=== PATIENT | male | born 1945 | race Caucasian/White ===

== ENCOUNTER → 2018-01-06 | Outpatient (CLI) | payer OTHER | END | disposition home or self-care (01) | LOC: SHCH 10:38 | PROVIDERS: ATTEND Internal Medicine Cardiovascular Disease | DX: I65.23 Occlusion and stenosis of bilateral carotid arteries (principal) | CPT/HCPCS: 93880 ==

== ENCOUNTER → 2019-03-20 | Outpatient (CLI) | payer OTHER | END | disposition home or self-care (01) | LOC: SHCH 08:21 | PROVIDERS: ATTEND Internal Medicine Cardiovascular Disease | DX: I08.0 Rheumatic disorders of both mitral and aortic valves (principal); I11.9 Hypertensive heart disease without heart failure | CPT/HCPCS: 93306 ==

== ENCOUNTER → 2019-06-19 | Outpatient (CLI) | payer OTHER ==
[~2019-06-19] MED LIST: AEC81 PO; AMIT100T2 PO; AMLO5TAB5 PO; APIX5TAB PO; ATOR40TA69 PO; FENO54TA6 PO; INSU100I35 SQ; METF-444 PO; METO50TA18 PO; OMEGA KRILL OIL PO; PREG150C46 PO; [UNRECOGNIZED DRUG - OTHER] PO
== END | disposition home or self-care (01) ==
LOC: RAH 13:16
PROVIDERS: ATTEND Internal Medicine Nephrology
DX: I82.492 Acute embolism and thrombosis of other specified deep vein of left lower extremity (principal)
CPT/HCPCS: 93971

== ENCOUNTER 2022-04-17 01:44 | Emergency (ER) | payer OTHER ==
[~2022-04-17] VITALS: Ht 177.8 cm; Wt 115.7 kg
[2022-04-17 02:21] LABS: BASOPHILS % (AUTO) 0.4 % (0.0-5.0); EOSINOPHILS % (AUTO) 4.9 % (0.0-8.0); HEMATOCRIT 43.7 % (42-54); LYMPHOCYTES % (AUTO) 49.3 % (21.0-51.0); MEAN CORPUSCULAR HEMOGLOBIN 28.2 pg (27.0-33.0); MEAN CORPUSCULAR HGB CONC 34.1 g/dL (32.0-36.0); MEAN CORPUSCULAR VOLUME 82.6 fL (79-99); MONOCYTES % (AUTO) 5.8 % (3.0-13.0); NEUTROPHILS % (AUTO) 39.3 % (40.0-77.0); PLATELET COUNT (AUTO) 76 K/uL (130-400); RED BLOOD CELL COUNT(AUTO) 5.29 MIL/uL (4.50-6.20); RED CELL DISTRIBUTION WIDTH 13.3 % (11.0-15.5); WHITE BLOOD COUNT (AUTO) 11.2 K/uL (4.8-10.8)
[2022-04-17] MEDS ORDERED: FUROSEMIDE 40MG VIAL IV ONE (02:30)
[2022-04-17 02:31] LABS: CREATININE 2.2 mg/dL (0.5-1.5); POTASSIUM 4.5 mmol/L (3.5-5.1)
[2022-04-17 02:31] LABS: APPEARANCE,URINE CLEAR (CLEAR); BILIRUBIN,URINE NEGATIVE (NEGATIVE); COLOR,URINE YELLOW (YELLOW); GLUCOSE, URINE (UA) >=1000 mg/dL (NEGATIVE); KETONES,URINE NEGATIVE (NEGATIVE); LEUKOCYTE ESTERASE ,URINE NEGATIVE (NEGATIVE); NITRATE,URINE NEGATIVE (NEGATIVE); OCCULT BLOOD,URINE TRACE-INTACT (NEGATIVE); PROTEIN,URINE NEGATIVE (NEGATIVE); UROBILINOGEN,URINE 0.2 mg/dL (0.2-1.0)
[2022-04-17 02:32] LABS: PROTHROMBIN TIME 10.9 SEC (9.6-11.6)
[2022-04-17 02:33] LABS: PARTIAL THROMBOPLASTIN TIME 22.5 SEC (26.3-35.5)
[2022-04-17 02:36] LABS: BACTERIA,URINE None Seen /HPF (None Seen); RBC,URINE 0-1 /HPF (0-1); SQUAMOUS EPITHELIAL CELL,UR Rare /HPF (0-2); WBC,URINE 0-1 /HPF (0-1)
[2022-04-17 02:38] LABS: ALBUMIN 3.8 g/dL (3.5-5.0); TOTAL PROTEIN, SERUM 7.1 g/dL (6.0-8.3)
[2022-04-17 04:46] VITALS: BP 143/53
== END 2022-04-17 04:53 | disposition home or self-care (01) ==
LOC: EDH 01:44
DX: I10 Essential (primary) hypertension (principal); E78.00 Pure hypercholesterolemia, unspecified; Z79.899 Other long term (current) drug therapy; Z79.82 Long term (current) use of aspirin
CPT/HCPCS: 99283; 96374; 84484; 80053; 85025; 85610; 85730; 81001; 36415; 93005; J1940

== ENCOUNTER 2022-04-27 22:12 | Inpatient (IN) | payer OTHER ==
[~2022-04-27] VITALS: Ht 177.8 cm; Wt 107.9 kg
[~2022-04-27 22:12] MED LIST changes: +ALTEPLASE 100 MG VIAL IVP ONE
[2022-04-27 22:42] LABS: BASOPHILS % (AUTO) 0.3 % (0.0-5.0); EOSINOPHILS % (AUTO) 2.2 % (0.0-8.0); HEMATOCRIT 43.8 % (42-54); MEAN CORPUSCULAR HEMOGLOBIN 28.3 pg (27.0-33.0); MEAN CORPUSCULAR HGB CONC 34.5 g/dL (32.0-36.0); MONOCYTES % (AUTO) 12.1 % (3.0-13.0); NEUTROPHILS % (AUTO) 41.2 % (40.0-77.0); PLATELET COUNT (AUTO) 104 K/uL (130-400); RED BLOOD CELL COUNT(AUTO) 5.34 MIL/uL (4.50-6.20); RED CELL DISTRIBUTION WIDTH 13.2 % (11.0-15.5); WHITE BLOOD COUNT (AUTO) 14.1 K/uL (4.8-10.8)
[2022-04-27 22:56] LABS: CREATININE 3.6 mg/dL (0.5-1.5); POTASSIUM 4.4 mmol/L (3.5-5.1)
[2022-04-27] MEDS ORDERED: FUROSEMIDE 40MG VIAL IV ONE (23:00)
[2022-04-27 23:02] LABS: CRP QUANTITATIVE 22.4 mg/L (0.00-9.0); MAGNESIUM 2.6 mg/dL (1.80-2.40); TOTAL PROTEIN, SERUM 7.6 g/dL (6.0-8.3)
[2022-04-27] MEDS ORDERED: ASPIRIN 325MG TAB ONE (23:07)
[2022-04-27] MEDS ORDERED: NITROGLYCERIN 1GM OINT 1 INCH/1GM TD ONE ×2 (23:07→23:30)
[2022-04-27 23:08] LABS: B-TYPE NATRIURETIC PEPTIDE 240 pg/mL (0-100)
[2022-04-27 23:21] LABS: APPEARANCE,URINE CLEAR (CLEAR); BILIRUBIN,URINE NEGATIVE (NEGATIVE); COLOR,URINE YELLOW (YELLOW); GLUCOSE, URINE (UA) >=1000 mg/dL (NEGATIVE); KETONES,URINE NEGATIVE (NEGATIVE); LEUKOCYTE ESTERASE ,URINE NEGATIVE (NEGATIVE); NITRATE,URINE NEGATIVE (NEGATIVE); OCCULT BLOOD,URINE NEGATIVE (NEGATIVE); PROTEIN,URINE NEGATIVE (NEGATIVE); UROBILINOGEN,URINE 0.2 mg/dL (0.2-1.0)
[2022-04-27 23:27] LABS: BACTERIA,URINE Rare /HPF (None Seen); RBC,URINE 0-1 /HPF (0-1); SQUAMOUS EPITHELIAL CELL,UR 0-2 /HPF (0-2); WBC,URINE 0-1 /HPF (0-1)
[2022-04-27] MEDS ORDERED: ASPIRIN 325MG TAB PO ONE (23:30)
[2022-04-27] MEDS ORDERED: TRAMADOL HCL 50 MG TABLET PO ONE (23:30)
[2022-04-27] MEDS ORDERED: HEPARIN 5,000 UNIT VIAL ONE (23:38)
[2022-04-27] MEDS ORDERED: HEPARIN 25,000 UNITS/250ML D5W 250 ML IV ONE (23:39)
[2022-04-28] VITALS (28 sets, daily range): BP systolic 93–156; BP diastolic 49–77
[2022-04-28] MEDS ORDERED: ACETAMINOPHEN 325 MG TAB PO PRN
[2022-04-28] MEDS ORDERED: CLOPIDOGREL 300MG TAB PO ONE
[2022-04-28] MEDS ORDERED: HEPARIN 1,000 UNIT VIAL IVP SCH
[2022-04-28] MEDS ORDERED: NITROGLYCERIN 1GM OINT 1 INCH/1GM TD ONE
[2022-04-28] MEDS ORDERED: ONDANSETRON 4MG INJ IV PRN
[2022-04-28] MEDS ORDERED: HEPARIN 25,000 UNITS/250ML D5W 250 ML IV SCH
[2022-04-28] MEDS: ALTEPLASE 100MG 1 VIAL IV PRN ×3 (00:17→01:15)
[2022-04-28 02:48] LABS: BASOPHILS % (AUTO) 0.3 % (0.0-5.0); EOSINOPHILS % (AUTO) 3.1 % (0.0-8.0); HEMATOCRIT 39.6 % (42-54); LYMPHOCYTES % (AUTO) 45.2 % (21.0-51.0); MEAN CORPUSCULAR HEMOGLOBIN 28.4 pg (27.0-33.0); MEAN CORPUSCULAR HGB CONC 34.6 g/dL (32.0-36.0); MONOCYTES % (AUTO) 13.5 % (3.0-13.0); NEUTROPHILS % (AUTO) 37.6 % (40.0-77.0); PLATELET COUNT (AUTO) 106 K/uL (130-400); RED BLOOD CELL COUNT(AUTO) 4.83 MIL/uL (4.50-6.20); RED CELL DISTRIBUTION WIDTH 13.2 % (11.0-15.5); WHITE BLOOD COUNT (AUTO) 16.6 K/uL (4.8-10.8)
[2022-04-28 02:55] LABS: INR 1.05 (0.85-1.15); PROTHROMBIN TIME 11.4 SEC (9.6-11.6)
[2022-04-28 02:56] LABS: PARTIAL THROMBOPLASTIN TIME 25.7 SEC (26.3-35.5)
[2022-04-28 02:57] LABS: CREATININE 3.4 mg/dL (0.5-1.5); POTASSIUM 3.6 mmol/L (3.5-5.1)
[2022-04-28 03:04] LABS: MAGNESIUM 2.5 mg/dL (1.80-2.40); PHOSPHORUS 5.8 mg/dL (2.5-4.9)
[2022-04-28 03:28] LABS: HEMOGLOBIN A1C 7.8 % (4.0-6.0)
[2022-04-28 05:23] LABS: HEMATOCRIT 38.9 % (42-54)
[2022-04-28 05:40] LABS: INR 1.09 (0.85-1.15); PROTHROMBIN TIME 11.8 SEC (9.6-11.6)
[2022-04-28 05:41] LABS: PARTIAL THROMBOPLASTIN TIME 39.3 SEC (26.3-35.5)
[2022-04-28 08:14] LABS: APPEARANCE,URINE TURBID (CLEAR); BILIRUBIN,URINE NEGATIVE (NEGATIVE); COLOR,URINE RED (YELLOW); GLUCOSE, URINE (UA) >=1000 mg/dL (NEGATIVE); KETONES,URINE 40 mg/dL (NEGATIVE); LEUKOCYTE ESTERASE ,URINE LARGE (NEGATIVE); NITRATE,URINE POSITIVE (NEGATIVE); OCCULT BLOOD,URINE LARGE (NEGATIVE); PH,URINE 6.5 (5.0-8.0); PROTEIN,URINE >=300 mg/dL (NEGATIVE); UROBILINOGEN,URINE >=8.0 mg/dL (0.2-1.0)
[2022-04-28 08:22] LABS: RBC,URINE Full Field /HPF (0-1)
[2022-04-28 08:25] LABS: BACTERIA,URINE Few /HPF (None Seen); SQUAMOUS EPITHELIAL CELL,UR 0-2 /HPF (0-2)
[2022-04-28] MEDS: ASPIRIN 81MG CHEW TAB PO SCH (08:35)
[2022-04-28] MEDS: FAMOTIDINE 20MG VIAL IV SCH (08:35)
[2022-04-28] MEDS: INSULIN HUMULIN R 100 UNIT/ML 3ML SQ SCH ×5 (08:37→21:16)
[2022-04-28] MEDS ORDERED: NIFEDIPINE ER 30 MG TAB PO SCH (09:00)
[2022-04-28] MEDS ORDERED: CLOPIDOGREL 75MG TAB PO SCH (09:00)
[2022-04-28] MEDS ORDERED: ASPIRIN 81MG CHEW TAB PO SCH (09:00)
[2022-04-28] MEDS: MORPHINE 2 MG SYG IV PRN ×2 (11:22→21:05)
[2022-04-28] MEDS: HYDROMORPHONE 1 MG INJ IV PRN ×2 (13:03→18:49)
[2022-04-28] MEDS ORDERED: METOPROLOL TARTRATE 25 MG TAB PO SCH (21:00)
[2022-04-28] MEDS: ATORVASTATIN 40 MG TABLET PO SCH (21:00)
[2022-04-29] VITALS (24 sets, daily range): BP systolic 116–170; BP diastolic 55–110
[2022-04-29 04:32] LABS: HEMATOCRIT 40.7 % (42-54); MEAN CORPUSCULAR HEMOGLOBIN 28.2 pg (27.0-33.0); MEAN CORPUSCULAR HGB CONC 33.9 g/dL (32.0-36.0); MEAN CORPUSCULAR VOLUME 83.2 fL (79-99); RED BLOOD CELL COUNT(AUTO) 4.89 MIL/uL (4.50-6.20); WHITE BLOOD COUNT (AUTO) 10.6 K/uL (4.8-10.8)
[2022-04-29 04:42] LABS: INR 1.05 (0.85-1.15); PROTHROMBIN TIME 11.4 SEC (9.6-11.6)
[2022-04-29 04:44] LABS: PARTIAL THROMBOPLASTIN TIME 24.9 SEC (26.3-35.5)
[2022-04-29 05:00] LABS: ALBUMIN 3.5 g/dL (3.5-5.0); CREATININE 2.6 mg/dL (0.5-1.5); MAGNESIUM 2.5 mg/dL (1.80-2.40); PHOSPHORUS 4.3 mg/dL (2.5-4.9); POTASSIUM 4.2 mmol/L (3.5-5.1); TOTAL PROTEIN, SERUM 6.3 g/dL (6.0-8.3); URIC ACID 9.8 mg/dL (2.6-7.2)
[2022-04-29] MEDS: INSULIN HUMULIN R 100 UNIT/ML 3ML SQ SCH ×4 (05:28→21:22)
[2022-04-29] MEDS: FAMOTIDINE 20MG VIAL IV SCH (08:23)
[2022-04-29] MEDS: ASPIRIN 81MG CHEW TAB PO SCH (08:24)
[2022-04-29] MEDS: ISOSORBIDE DINITRATE 10MG TAB PO SCH ×2 (08:24→21:13)
[2022-04-29] MEDS: METOPROLOL TARTRATE 25 MG TAB PO SCH ×2 (08:24→21:12)
[2022-04-29] MEDS: MORPHINE 2 MG SYG IV PRN ×2 (08:25→19:21)
[2022-04-29] MEDS ORDERED: PHARMACY COMMUNICATION MISC SCH (08:30)
[2022-04-29] MEDS: CLOPIDOGREL 75MG TAB PO SCH (09:37)
[2022-04-29] MEDS: HYDROMORPHONE 1 MG INJ IV PRN ×2 (14:07→21:20)
[2022-04-29] MEDS: HEPARIN 25,000 UNITS/250ML D5W 250 ML IV PRN (14:12)
[2022-04-29] MEDS ORDERED: ISOSORBIDE DINITRATE 10MG TAB PO SCH (16:30)
[2022-04-29] MEDS ORDERED: HEPARIN 5,000 UNIT VIAL ONE (19:47)
[2022-04-29] MEDS ORDERED: ISOSORBIDE DINITRATE 20MG TAB ONE (21:03)
[2022-04-29] MEDS: ATORVASTATIN 40 MG TABLET PO SCH (21:12)
[2022-04-30] VITALS (63 sets, daily range): BP systolic 98–162; BP diastolic 40–112
[2022-04-30] MEDS: HEPARIN 25,000 UNITS/250ML D5W 250 ML IV PRN (01:09)
[2022-04-30] MEDS ORDERED: NITROGLYCERIN 50MG/D5W 250ML 1 BOT ONE (01:25)
[2022-04-30] MEDS ORDERED: NITROGLYCERIN 50MG/D5W 250ML 250 BOT IV SCH (02:00)
[2022-04-30 04:31] LABS: HEMATOCRIT 41.2 % (42-54); MEAN CORPUSCULAR HEMOGLOBIN 27.6 pg (27.0-33.0); MEAN CORPUSCULAR HGB CONC 33.7 g/dL (32.0-36.0); MEAN CORPUSCULAR VOLUME 81.9 fL (79-99); RED BLOOD CELL COUNT(AUTO) 5.03 MIL/uL (4.50-6.20); RED CELL DISTRIBUTION WIDTH 13.1 % (11.0-15.5)
[2022-04-30 04:58] LABS: ALBUMIN 3.4 g/dL (3.5-5.0); CREATININE 2.2 mg/dL (0.5-1.5); MAGNESIUM 2.5 mg/dL (1.80-2.40); PHOSPHORUS 3.1 mg/dL (2.5-4.9); POTASSIUM 4.1 mmol/L (3.5-5.1); TOTAL PROTEIN, SERUM 6.8 g/dL (6.0-8.3)
[2022-04-30] MEDS: INSULIN HUMULIN R 100 UNIT/ML 3ML SQ SCH (06:25)
[2022-04-30] MEDS: FAMOTIDINE 20MG VIAL IV SCH (07:56)
[2022-04-30] MEDS: METOPROLOL TARTRATE 25 MG TAB PO SCH (07:56)
[2022-04-30] MEDS: ASPIRIN 81MG CHEW TAB PO SCH (07:57)
[2022-04-30] MEDS: CLOPIDOGREL 75MG TAB PO SCH (07:57)
[2022-04-30] MEDS: ISOSORBIDE DINITRATE 10MG TAB PO SCH (08:48)
[2022-04-30] MEDS ORDERED: AMLODIPINE 5 MG TAB PO ONE (10:00)
[2022-04-30] MEDS: AMLODIPINE 5 MG TAB PO SCH (10:27)
[2022-04-30] MEDS: INSULIN LISPRO 100 UNIT/ML 3ML SQ SCH ×5 (11:38→21:00)
[2022-04-30] MEDS ORDERED: ISOS60TA77 PO (11:55)
[2022-04-30] MEDS ORDERED: INSU100V37 SQ (11:55)
[2022-04-30] MEDS ORDERED: FOLI0.8T22 PO (11:55)
[2022-04-30] MEDS ORDERED: DOXA8TAB81 PO (11:55)
[2022-04-30] MEDS ORDERED: TORS20TA4 PO (11:55)
[2022-04-30] MEDS ORDERED: LOSA50TA64 PO (11:55)
[2022-04-30] MEDS ORDERED: ROSU10TA28 PO (11:55)
[2022-04-30] MEDS ORDERED: ICOS1CAP PO (11:55)
[2022-04-30] MEDS ORDERED: INSU100V35 SQ (11:55)
[2022-04-30] MEDS ORDERED: GABA-529 PO (11:55)
[2022-04-30] MEDS ORDERED: CARV25TA77 PO (11:55)
[2022-04-30] MEDS ORDERED: DAPA10TA PO (11:55)
[2022-04-30] MEDS ORDERED: ISOSORBIDE DINITRATE 10MG TAB PO SCH (21:00)
[2022-04-30] MEDS ORDERED: CARVEDILOL 6.25 MG TABLET PO SCH (21:00)
[2022-04-30] MEDS: ATORVASTATIN 40 MG TABLET PO SCH (21:15)
[2022-04-30] MEDS: AMITRIPTYLINE 25 MG TABLET PO SCH (21:16)
[2022-04-30] MEDS: INSULIN GLARGINE 100 UNITS/ML 10 ML VIAL SQ SCH (21:18)
[2022-04-30] MEDS ORDERED: LEVOFLOXACIN 250 MG/D5W 50ML 50 ML IVPB SCH (23:30)
[2022-05-01] VITALS (30 sets, daily range): BP systolic 97–176; BP diastolic 42–114
[2022-05-01 03:53] LABS: HEMATOCRIT 37.9 % (42-54); MEAN CORPUSCULAR HEMOGLOBIN 28.3 pg (27.0-33.0); MEAN CORPUSCULAR HGB CONC 34.3 g/dL (32.0-36.0); MEAN CORPUSCULAR VOLUME 82.4 fL (79-99); RED BLOOD CELL COUNT(AUTO) 4.6 MIL/uL (4.50-6.20); RED CELL DISTRIBUTION WIDTH 13.2 % (11.0-15.5); WHITE BLOOD COUNT (AUTO) 10.8 K/uL (4.8-10.8)
[2022-05-01 04:06] LABS: CREATININE 2.1 mg/dL (0.5-1.5); MAGNESIUM 2.3 mg/dL (1.80-2.40)
[2022-05-01] MEDS: INSULIN LISPRO 100 UNIT/ML 3ML SQ SCH ×7 (07:30→20:28)
[2022-05-01] MEDS: CLOPIDOGREL 75MG TAB PO SCH (08:53)
[2022-05-01] MEDS: CARVEDILOL 25 MG TABLET PO SCH ×2 (08:54→20:27)
[2022-05-01] MEDS: FAMOTIDINE 20MG VIAL IV SCH (08:54)
[2022-05-01] MEDS: GABAPENTIN 100 MG CAPSULE PO SCH (08:55)
[2022-05-01] MEDS: AMLODIPINE 5 MG TAB PO SCH (08:56)
[2022-05-01] MEDS: ASPIRIN 81MG CHEW TAB PO SCH (08:56)
[2022-05-01] MEDS ORDERED: ISOSORBIDE MONO 30MG SR TAB PO SCH (09:00)
[2022-05-01] MEDS: HYDROMORPHONE 1 MG INJ IV PRN (09:38)
[2022-05-01] MEDS: ATORVASTATIN 40 MG TABLET PO SCH (20:26)
[2022-05-01] MEDS: AMITRIPTYLINE 25 MG TABLET PO SCH (20:26)
[2022-05-01] MEDS: INSULIN GLARGINE 100 UNITS/ML 10 ML VIAL SQ SCH (20:29)
[2022-05-02] VITALS (7 sets, daily range): BP systolic 128–150; BP diastolic 60–94
[2022-05-02 04:28] LABS: HEMATOCRIT 39.9 % (42-54); MEAN CORPUSCULAR HEMOGLOBIN 28.2 pg (27.0-33.0); MEAN CORPUSCULAR HGB CONC 34.3 g/dL (32.0-36.0); MEAN CORPUSCULAR VOLUME 82.1 fL (79-99); RED BLOOD CELL COUNT(AUTO) 4.86 MIL/uL (4.50-6.20); RED CELL DISTRIBUTION WIDTH 13.2 % (11.0-15.5); WHITE BLOOD COUNT (AUTO) 10.4 K/uL (4.8-10.8)
[2022-05-02 04:35] LABS: CREATININE 2.1 mg/dL (0.5-1.5); INR 1.01 (0.85-1.15); POTASSIUM 4.1 mmol/L (3.5-5.1)
[2022-05-02 04:36] LABS: PARTIAL THROMBOPLASTIN TIME 24.5 SEC (26.3-35.5)
[2022-05-02] MEDS: INSULIN LISPRO 100 UNIT/ML 3ML SQ SCH ×7 (07:30→21:25)
[2022-05-02] MEDS: FAMOTIDINE 20MG VIAL IV SCH (08:53)
[2022-05-02] MEDS: ASPIRIN 81MG CHEW TAB PO SCH (08:53)
[2022-05-02] MEDS: CLOPIDOGREL 75MG TAB PO SCH (08:54)
[2022-05-02] MEDS: ISOSORBIDE MONO 30MG SR TAB PO SCH ×2 (08:54→21:09)
[2022-05-02] MEDS: GABAPENTIN 100 MG CAPSULE PO SCH (08:54)
[2022-05-02] MEDS: FISH OIL 1000 MG/CAP PO SCH (08:54)
[2022-05-02] MEDS: AMLODIPINE 5 MG TAB PO SCH ×2 (08:54→21:09)
[2022-05-02] MEDS: CARVEDILOL 25 MG TABLET PO SCH ×2 (08:55→21:09)
[2022-05-02] MEDS: ***HM***(Fenofibrate 54 MG) PO SCH (08:56)
[2022-05-02] MEDS ORDERED: TORSEMIDE 20 MG TAB PO SCH (09:00)
[2022-05-02] MEDS: 0.9%NACL 1000ML 1,000 ML IV SCH (13:10)
[2022-05-02] MEDS: ACETYLCYSTEINE 20% 200MG/ML 4ML VIAL PO SCH ×3 (13:10→21:10)
[2022-05-02] MEDS: ATORVASTATIN 40 MG TABLET PO SCH (21:09)
[2022-05-02] MEDS: ISOSORBIDE MONO 60MG SR TAB PO SCH (21:09)
[2022-05-02] MEDS: DOXAZOSIN MESYLATE 2 MG TABLET PO SCH (21:10)
[2022-05-02] MEDS: AMITRIPTYLINE 25 MG TABLET PO SCH (21:12)
[2022-05-02] MEDS: INSULIN GLARGINE 100 UNITS/ML 10 ML VIAL SQ SCH (21:23)
[2022-05-03] VITALS (13 sets, daily range): BP systolic 98–140; BP diastolic 50–71
[2022-05-03 04:23] LABS: BASOPHILS % (AUTO) 0.3 % (0.0-5.0); EOSINOPHILS % (AUTO) 4.4 % (0.0-8.0); HEMATOCRIT 35.2 % (42-54); LYMPHOCYTES % (AUTO) 44.9 % (21.0-51.0); MEAN CORPUSCULAR HEMOGLOBIN 28.7 pg (27.0-33.0); MEAN CORPUSCULAR HGB CONC 34.4 g/dL (32.0-36.0); MEAN CORPUSCULAR VOLUME 83.4 fL (79-99); MONOCYTES % (AUTO) 8.2 % (3.0-13.0); NEUTROPHILS % (AUTO) 41.9 % (40.0-77.0); PLATELET COUNT (AUTO) 79 K/uL (130-400); RED BLOOD CELL COUNT(AUTO) 4.22 MIL/uL (4.50-6.20); RED CELL DISTRIBUTION WIDTH 13.3 % (11.0-15.5); WHITE BLOOD COUNT (AUTO) 9.7 K/uL (4.8-10.8)
[2022-05-03 04:35] LABS: INR 1.05 (0.85-1.15); PROTHROMBIN TIME 11.4 SEC (9.6-11.6)
[2022-05-03 04:42] LABS: CREATININE 2.2 mg/dL (0.5-1.5); MAGNESIUM 2.3 mg/dL (1.80-2.40); PHOSPHORUS 4.4 mg/dL (2.5-4.9)
[2022-05-03] MEDS: INSULIN LISPRO 100 UNIT/ML 3ML SQ SCH ×7 (06:20→21:49)
[2022-05-03] MEDS: ACETYLCYSTEINE 20% 200MG/ML 4ML VIAL PO SCH ×3 (06:20→21:15)
[2022-05-03] MEDS: 0.9%NACL 1000ML 1,000 ML IV SCH (06:20)
[2022-05-03] MEDS ORDERED: NITROGLYCERIN 50MG VIAL ONE (07:22)
[2022-05-03] MEDS ORDERED: HEPARIN 10,000 UNIT/10ML (1,000 UNIT/ML) VIAL ONE ×2 (07:22→09:14)
[2022-05-03] MEDS ORDERED: LIDOCAINE HCL 400MG/20ML VIAL ONE (07:22)
[2022-05-03] MEDS ORDERED: IOHEXOL 350 MG/ML 100ML INFUS..BTL IV ONE (07:22)
[2022-05-03] MEDS: FAMOTIDINE 20MG VIAL IV SCH (07:40)
[2022-05-03] MEDS: ASPIRIN 81MG CHEW TAB PO SCH (07:40)
[2022-05-03] MEDS: FISH OIL 1000 MG/CAP PO SCH (07:40)
[2022-05-03] MEDS: CARVEDILOL 25 MG TABLET PO SCH ×2 (07:40→21:14)
[2022-05-03] MEDS: CLOPIDOGREL 75MG TAB PO SCH (07:41)
[2022-05-03] MEDS: GABAPENTIN 100 MG CAPSULE PO SCH (07:41)
[2022-05-03] MEDS: ISOSORBIDE MONO 30MG SR TAB PO SCH ×2 (07:41→21:14)
[2022-05-03] MEDS: AMLODIPINE 5 MG TAB PO SCH ×2 (07:41→21:14)
[2022-05-03] MEDS: ***HM***(Fenofibrate 54 MG) PO SCH (07:41)
[2022-05-03] MEDS ORDERED: MIDAZOLAM HCL 1 MG/ML 2ML VIAL ONE ×2 (07:47→09:34)
[2022-05-03] MEDS ORDERED: FENTANYL CITRATE PF 50 MCG/1 ML 2ML VIAL ONE (07:47)
[2022-05-03] MEDS ORDERED: IODIXANOL 320 MG/ML 100 ML VIAL ONE ×2 (08:06→09:31)
[2022-05-03] MEDS ORDERED: CLOPIDOGREL 300MG TAB ONE (08:17)
[2022-05-03] MEDS ORDERED: ATROPINE 1MG SYG IVP ONE (08:23)
[2022-05-03] MEDS ORDERED: DOPAMINE HCL 400 MG/D5%-WATER 0 ML IV ONE (08:25)
[2022-05-03] MEDS ORDERED: GLUCAGON 1MG KIT 1 MG ML IM PRN (10:30)
[2022-05-03] MEDS ORDERED: 0.9%NACL 1000ML 1,000 ML IV SCH (10:30)
[2022-05-03] MEDS ORDERED: DEXTROSE 50%-WATER 50 ML DISP.SYRIN IV PRN (10:30)
[2022-05-03] MEDS: DOXAZOSIN MESYLATE 2 MG TABLET PO SCH (21:14)
[2022-05-03] MEDS: ATORVASTATIN 40 MG TABLET PO SCH (21:14)
[2022-05-03] MEDS: ISOSORBIDE MONO 60MG SR TAB PO SCH (21:15)
[2022-05-03] MEDS: AMITRIPTYLINE 25 MG TABLET PO SCH (21:15)
[2022-05-03] MEDS: INSULIN GLARGINE 100 UNITS/ML 10 ML VIAL SQ SCH (21:48)
[2022-05-04 00:14] VITALS: BP 147/75
[2022-05-04 03:01] VITALS: BP 124/64
[2022-05-04] MEDS: 0.9%NACL 1000ML 1,000 ML IV SCH (04:00)
[2022-05-04 04:11] LABS: HEMATOCRIT 35.4 % (42-54); MEAN CORPUSCULAR HEMOGLOBIN 27.8 pg (27.0-33.0); MEAN CORPUSCULAR HGB CONC 33.6 g/dL (32.0-36.0); MEAN CORPUSCULAR VOLUME 82.7 fL (79-99); RED BLOOD CELL COUNT(AUTO) 4.28 MIL/uL (4.50-6.20); RED CELL DISTRIBUTION WIDTH 13.2 % (11.0-15.5); WHITE BLOOD COUNT (AUTO) 9.1 K/uL (4.8-10.8)
[2022-05-04 04:58] LABS: CREATININE 1.9 mg/dL (0.5-1.5); MAGNESIUM 2.2 mg/dL (1.80-2.40); PHOSPHORUS 4.1 mg/dL (2.5-4.9); POTASSIUM 4.4 mmol/L (3.5-5.1)
[2022-05-04] MEDS: ACETYLCYSTEINE 20% 200MG/ML 4ML VIAL PO SCH ×2 (06:26→13:17)
[2022-05-04] MEDS: INSULIN LISPRO 100 UNIT/ML 3ML SQ SCH ×6 (06:28→16:07)
[2022-05-04 08:10] VITALS: BP 113/55
[2022-05-04] MEDS: ***HM***(Fenofibrate 54 MG) PO SCH (09:00)
[2022-05-04] MEDS: FAMOTIDINE 20MG VIAL IV SCH (10:37)
[2022-05-04] MEDS: ISOSORBIDE MONO 30MG SR TAB PO SCH (10:38)
[2022-05-04] MEDS: AMLODIPINE 5 MG TAB PO SCH (10:38)
[2022-05-04] MEDS: CARVEDILOL 25 MG TABLET PO SCH (10:38)
[2022-05-04] MEDS: CLOPIDOGREL 75MG TAB PO SCH (10:39)
[2022-05-04] MEDS: GABAPENTIN 100 MG CAPSULE PO SCH (10:39)
[2022-05-04] MEDS: ASPIRIN 81MG CHEW TAB PO SCH (10:39)
[2022-05-04] MEDS: FISH OIL 1000 MG/CAP PO SCH (10:39)
[2022-05-04 12:00] VITALS: BP 134/66
[2022-05-04] MEDS ORDERED: CLOP75TA14 PO (14:22)
[2022-05-04] MEDS ORDERED: ISOS60TA77 PO (14:22)
[2022-05-04] MEDS ORDERED: ATOR40TA69 PO (14:22)
[2022-05-04] MEDS ORDERED: AEC81 PO (14:22)
[2022-05-04] MEDS ORDERED: INSU100V35 SQ (14:22)
[2022-05-04] MEDS ORDERED: INSU100V37 SQ (14:22)
[2022-05-04] MEDS ORDERED: TORS20TA4 PO (14:22)
[2022-05-04 16:00] VITALS: BP 117/66
== END 2022-05-04 18:00 | disposition home or self-care (01) | DRG 246 ==
LOC: EDH 22:12 → EDHIP 23:34 → 2BH 04-28 02:25 → 2DH 05-02 03:09
PROVIDERS: ADMIT Internal Medicine; ATTEND Internal Medicine
PROC: 3E03317 Introduction of Other Thrombolytic into Peripheral Vein, Percutaneous Approach (ICD-10-PCS; 2022-04-27)
PROC: 027035Z Dilation of Coronary Artery, One Artery with Two Drug-eluting Intraluminal Devices, Percutaneous Approach (ICD-10-PCS; principal; 2022-05-03)
PROC: 4A023N7 Measurement of Cardiac Sampling and Pressure, Left Heart, Percutaneous Approach (ICD-10-PCS; 2022-05-03)
PROC: B2111ZZ Fluoroscopy of Multiple Coronary Arteries using Low Osmolar Contrast (ICD-10-PCS; 2022-05-03)
DX: I21.09 ST elevation (STEMI) myocardial infarction involving other coronary artery of anterior wall (principal); I25.42 Coronary artery dissection; E87.1 Hypo-osmolality and hyponatremia; N17.9 Acute kidney failure, unspecified; D68.59 Other primary thrombophilia; I50.42 Chronic combined systolic (congestive) and diastolic (congestive) heart failure; N18.4 Chronic kidney disease, stage 4 (severe); I13.0 Hypertensive heart and chronic kidney disease with heart failure and stage 1 through stage 4 chronic kidney disease, or unspecified chronic kidney disease; E11.22 Type 2 diabetes mellitus with diabetic chronic kidney disease; E11.65 Type 2 diabetes mellitus with hyperglycemia; E87.8 Other disorders of electrolyte and fluid balance, not elsewhere classified; J44.9 Chronic obstructive pulmonary disease, unspecified; D72.829 Elevated white blood cell count, unspecified; D69.6 Thrombocytopenia, unspecified; Z79.899 Other long term (current) drug therapy; Z90.79 Acquired absence of other genital organ(s); T45.515A Adverse effect of anticoagulants, initial encounter; E78.00 Pure hypercholesterolemia, unspecified; E66.01 Morbid (severe) obesity due to excess calories; Z20.822 Contact with and (suspected) exposure to COVID-19; E78.5 Hyperlipidemia, unspecified; Z83.3 Family history of diabetes mellitus; Z82.49 Family history of ischemic heart disease and other diseases of the circulatory system; Z86.718 Personal history of other venous thrombosis and embolism; Z86.73 Personal history of transient ischemic attack (TIA), and cerebral infarction without residual deficits; I25.10 Atherosclerotic heart disease of native coronary artery without angina pectoris; R31.0 Gross hematuria; Y92.238 Other place in hospital as the place of occurrence of the external cause; G20 Parkinson's disease; M17.0 Bilateral primary osteoarthritis of knee; N36.8 Other specified disorders of urethra; N40.0 Benign prostatic hyperplasia without lower urinary tract symptoms; Z79.01 Long term (current) use of anticoagulants; G47.33 Obstructive sleep apnea (adult) (pediatric); Z68.34 Body mass index [BMI] 34.0-34.9, adult; E11.21 Type 2 diabetes mellitus with diabetic nephropathy
CPT/HCPCS: 36415; 71045; 76770; 80048; 80053; 80061; 81001; 82948; 83036; 83735; 83880; 84100; 84484; 84550; 85014; 85018; 85025; 85027; 85610; 85730; 86140; 86850; 86900; 86901; 87088; 87635; 93005; 93306; 93356; 93458; 93970; 99156; 99157; C1725; C1894; C9600; C9803; G0378; J0461; J1170; J1265; J1644; J1815; J1940; J2250; J2997; J3010; J3490; J7030; J7608; Q9967

== ENCOUNTER 2023-06-04 13:00 | Observation (INO) | payer OTHER ==
[~2023-06-04] VITALS: Ht 177.8 cm; Wt 98.6 kg
[~2023-06-04 13:00] MED LIST changes: -AEC81 PO; -ALTEPLASE 100 MG VIAL IVP ONE; +AMLO-257 PO; -AMLO5TAB5 PO; -APIX5TAB PO; +ASPI-1005 PO; -ATOR40TA69 PO; +DAPA10TA PO; +DOXA4TAB3 PO; +FENO48TA10 PO; -FENO54TA6 PO; +FOLI0.8T43 PO; +INSU100I24 SQ; -INSU100I35 SQ; -METF-444 PO; -METO50TA18 PO; +NITR0.4T50 SL; +OMEG100033 PO; -OMEGA KRILL OIL PO; +PANT40TA54 PO; -PREG150C46 PO; +TICA90TA PO; -[UNRECOGNIZED DRUG - OTHER] PO
[2023-06-04] MEDS ORDERED: ASPIRIN 81MG CHEW TAB PO ONE (13:30)
[2023-06-04 14:01] LABS: BASOPHILS # (AUTO) 0.04 K/uL (0.00-0.20); BASOPHILS % (AUTO) 0.6 % (0.0-5.0); EOSINOPHILS # (AUTO) 0.37 K/uL (0.00-0.70); EOSINOPHILS % (AUTO) 5.7 % (0.0-8.0); HEMATOCRIT 38.9 % (42-54); IMMATURE GRANULOCYTE ABSOLUTE 0.01 K/uL (0-1); LYMPHOCYTES # (AUTO) 2.5 K/uL (1.0-4.8); LYMPHOCYTES % (AUTO) 38.5 % (21.0-51.0); MEAN CORPUSCULAR HEMOGLOBIN 29.5 pg (27.0-33.0); MEAN CORPUSCULAR HGB CONC 32.6 g/dL (32.0-36.0); MEAN CORPUSCULAR VOLUME 90.5 fL (79-99); MONOCYTES # (AUTO) 0.5 K/uL (0.1-1.0); NEUTROPHILS # (AUTO) 3.1 K/uL (1.8-7.7); PLATELET COUNT (AUTO) 184 K/uL (130-400); RED CELL DISTRIBUTION WIDTH 15.6 % (11.0-15.5); WHITE BLOOD COUNT (AUTO) 6.5 K/uL (4.8-10.8)
[2023-06-04 14:02] LABS: ALBUMIN 3.3 g/dL (3.5-5.0); BILIRUBIN,TOTAL 0.6 mg/dL (0.2-1.0); CREATININE 2.1 mg/dL (0.5-1.5); POTASSIUM 4.8 mmol/L (3.5-5.1)
[2023-06-04] MEDS ORDERED: GUAIFENESIN-DM 200/20 MG 10 ML PO PRN (16:00)
[2023-06-04] MEDS ORDERED: ACETAMINOPHEN 325 MG TAB PO PRN ×2 (16:00)
[2023-06-04] MEDS ORDERED: HYDRALAZINE 20MG/ML VIAL IV PRN (16:00)
[2023-06-04] MEDS ORDERED: CEFTRIAXONE 1G VIAL 2 GM in 0.9%NACL 100ML 100 ML IV SCH (16:00)
[2023-06-04] MEDS ORDERED: LACTULOSE 20 GM/30 ML UDCUP PO PRN (16:00)
[2023-06-04] MEDS ORDERED: ACETAMINOPHEN WITH CODEINE 1 TAB TAB PO PRN ×2 (16:00)
[2023-06-04] MEDS ORDERED: ZOLPIDEM TARTRATE 5 MG TAB PO PRN (16:00)
[2023-06-04] MEDS ORDERED: ONDANSETRON 4MG INJ IV PRN (16:00)
[2023-06-04] MEDS ORDERED: ALBUTEROL 0.083% 2.5 MG/3 ML INH IH PRN (16:00)
[2023-06-04] MEDS ORDERED: DiphenhydrAMINE HCL 50 MG/ML VIAL IV PRN (16:00)
[2023-06-04] MEDS ORDERED: MAG/ALUM/SIMETH 30 ML UDCUP PO PRN (16:00)
[2023-06-04] MEDS ORDERED: NITROGLYCERIN 0.4 MG SL TAB SL PRN (16:00)
[2023-06-04] MEDS ORDERED: CEFTRIAXONE 2GM VIAL IVPB SCH (16:30)
[2023-06-04 20:30] LABS: APPEARANCE,URINE CLEAR (CLEAR); BILIRUBIN,URINE NEGATIVE (NEGATIVE); COLOR,URINE LIGHT-YELLOW (YELLOW); GLUCOSE, URINE (UA) >=1000 mg/dL (NEGATIVE); KETONES,URINE NEGATIVE (NEGATIVE); LEUKOCYTE ESTERASE ,URINE NEGATIVE Leu/uL (NEGATIVE); MUCUS,URINE RARE LPF (None Seen); NITRATE,URINE NEGATIVE (NEGATIVE); OCCULT BLOOD,URINE NEGATIVE (NEGATIVE); PH,URINE 5.5 (5.0-8.0); PROTEIN,URINE NEGATIVE (NEGATIVE); RBC,URINE 0-1 /HPF (0-1); UROBILINOGEN,URINE 0.2 mg/dL (0.2-1.0); WBC,URINE 0-1 /HPF (0-1)
[2023-06-04] MEDS ORDERED: FAMOTIDINE 20MG VIAL IV SCH (21:00)
[2023-06-04] MEDS: FAMOTIDINE 20MG VIAL IV SCH (21:36)
[2023-06-04] MEDS: HEPARIN 5,000 UNIT VIAL SQ SCH (21:37)
[2023-06-04] MEDS: AMITRIPTYLINE 25 MG TABLET PO SCH (21:57)
[2023-06-05 07:03] VITALS: PULSE 84; RESP 18; O2SAT 98
[2023-06-05] MEDS: Dapagliflozin Propanediol (Farxiga) 5 MG PO SCH (09:00)
[2023-06-05] MEDS ORDERED: FISH OIL PO SCH (09:00)
[2023-06-05] MEDS ORDERED: OMEGA PO SCH (09:00)
[2023-06-05] MEDS ORDERED: [UNRECOGNIZED DRUG - OTHER] PO SCH (09:00)
[2023-06-05] MEDS ORDERED: EPA PO SCH (09:00)
[2023-06-05] MEDS ORDERED: FOLIC ACID PO SCH (09:00)
[2023-06-05] MEDS ORDERED: DHA PO SCH (09:00)
[2023-06-05] MEDS ORDERED: VIT BCOMP C PO SCH (09:00)
[2023-06-05] MEDS: HEPARIN 5,000 UNIT VIAL SQ SCH ×3 (09:00→19:54)
[2023-06-05] MEDS: INSULIN DEGLUDEC 45 UNIT SQ SCH (09:00)
[2023-06-05 09:08] VITALS: O2SAT 99
[2023-06-05] MEDS: INSULIN HUMULIN R 100 UNIT/ML 3ML SQ SCH ×2 (11:30→20:21)
[2023-06-05] MEDS: FISH OIL 1000 MG/CAP PO SCH (12:11)
[2023-06-05] MEDS: Vitamin B Complex/Vit C/Folic Acid PO SCH (12:11)
[2023-06-05] MEDS: ASPIRIN 81MG CHEW TAB PO SCH (12:11)
[2023-06-05] MEDS: AMLODIPINE 5 MG TAB PO SCH (12:11)
[2023-06-05] MEDS: TICAGRELOR 90 MG TABLET PO SCH ×2 (12:12→19:50)
[2023-06-05] MEDS: FENOFIBRATE NANOCRYSTALLIZED 48 MG TAB PO SCH (12:12)
[2023-06-05 16:00] VITALS: BP 131/79; PULSE 88; RESP 20
[2023-06-05 18:25] VITALS: PULSE 89; RESP 18; O2SAT 95
[2023-06-05] MEDS: FAMOTIDINE 20MG VIAL IV SCH (19:50)
[2023-06-05 20:00] VITALS: BP 112/59; PULSE 84; RESP 18; O2SAT 98
[2023-06-05] MEDS: AMITRIPTYLINE 25 MG TABLET PO SCH (20:05)
[2023-06-05] MEDS ORDERED: AMITRIPTYLINE HCL 100 MG PO SCH (21:00)
[2023-06-05] MEDS ORDERED: NON-FORMULARY MEDICATION 1 EACH (Doxazosin Mesylate 4 MG) PO SCH (21:00)
[2023-06-05] MEDS ORDERED: DOXAZOSIN MESYLATE 2 MG TABLET PO SCH (21:00)
[2023-06-05 23:52] VITALS: BP 125/59; PULSE 93; RESP 18
[2023-06-06 04:00] VITALS: BP 150/80; PULSE 94; RESP 18
[2023-06-06] MEDS: INSULIN HUMULIN R 100 UNIT/ML 3ML SQ SCH ×3 (06:00→18:31)
[2023-06-06 06:44] VITALS: PULSE 91; RESP 18; O2SAT 99
[2023-06-06 06:49] LABS: BASOPHILS # (AUTO) 0.04 K/uL (0.00-0.20); BASOPHILS % (AUTO) 0.7 % (0.0-5.0); EOSINOPHILS # (AUTO) 0.43 K/uL (0.00-0.70); EOSINOPHILS % (AUTO) 7.2 % (0.0-8.0); IMMATURE GRANULOCYTE ABSOLUTE 0.01 K/uL (0-1); LYMPHOCYTES # (AUTO) 2.5 K/uL (1.0-4.8); MEAN CORPUSCULAR HEMOGLOBIN 29.6 pg (27.0-33.0); MEAN CORPUSCULAR HGB CONC 32.8 g/dL (32.0-36.0); MEAN CORPUSCULAR VOLUME 90.3 fL (79-99); MONOCYTES # (AUTO) 0.5 K/uL (0.1-1.0); NEUTROPHILS # (AUTO) 2.6 K/uL (1.8-7.7); NEUTROPHILS % (AUTO) 42.9 % (40.0-77.0); PLATELET COUNT (AUTO) 144 K/uL (130-400); RED BLOOD CELL COUNT(AUTO) 4.32 MIL/uL (4.50-6.20); RED CELL DISTRIBUTION WIDTH 15.2 % (11.0-15.5)
[2023-06-06 07:01] LABS: ALBUMIN 3.2 g/dL (3.5-5.0); BILIRUBIN,TOTAL 0.6 mg/dL (0.2-1.0); CREATININE 2.1 mg/dL (0.5-1.5); MAGNESIUM 2.4 mg/dL (1.80-2.40); POTASSIUM 4.2 mmol/L (3.5-5.1); TOTAL PROTEIN, SERUM 6.8 g/dL (6.0-8.3)
[2023-06-06 08:00] VITALS: BP 99/60; PULSE 94; RESP 18; O2SAT 98
[2023-06-06] MEDS: Dapagliflozin Propanediol (Farxiga) 5 MG PO SCH (09:00)
[2023-06-06] MEDS: INSULIN DEGLUDEC 45 UNIT SQ SCH (09:00)
[2023-06-06] MEDS: TICAGRELOR 90 MG TABLET PO SCH (09:47)
[2023-06-06] MEDS: FENOFIBRATE NANOCRYSTALLIZED 48 MG TAB PO SCH (09:47)
[2023-06-06] MEDS: FISH OIL 1000 MG/CAP PO SCH (09:48)
[2023-06-06] MEDS: Vitamin B Complex/Vit C/Folic Acid PO SCH (09:48)
[2023-06-06] MEDS: AMLODIPINE 5 MG TAB PO SCH (09:48)
[2023-06-06] MEDS: ASPIRIN 81MG CHEW TAB PO SCH (09:48)
[2023-06-06] MEDS: HEPARIN 5,000 UNIT VIAL SQ SCH ×2 (09:55→14:13)
[2023-06-06 12:00] VITALS: BP 124/64; PULSE 82; RESP 20
[2023-06-06] MEDS ORDERED: FISH1CAP20 PO (14:39)
[2023-06-06] MEDS ORDERED: AMIT25TA9 PO (14:39)
[2023-06-06] MEDS ORDERED: DOXA2TAB2 PO (14:39)
[2023-06-06] MEDS ORDERED: Folic Acid/Vitamin B Comp W-C PO (14:39)
[2023-06-06 16:00] VITALS: BP 139/73; PULSE 90; RESP 20
[2023-06-06] MEDS ORDERED: ATORVASTATIN 40 MG TABLET PO SCH (21:00)
== END 2023-06-06 19:00 ==
LOC: EDH 13:00 → EDHIP 15:48 → 3BH 06-05 09:00
PROVIDERS: ADMIT Internal Medicine Critical Care Medicine; ATTEND Internal Medicine Critical Care Medicine
DX: R55 Syncope and collapse (principal); I25.10 Atherosclerotic heart disease of native coronary artery without angina pectoris; I12.9 Hypertensive chronic kidney disease with stage 1 through stage 4 chronic kidney disease, or unspecified chronic kidney disease; E11.22 Type 2 diabetes mellitus with diabetic chronic kidney disease; N18.32 Chronic kidney disease, stage 3b; E11.65 Type 2 diabetes mellitus with hyperglycemia; G20 Parkinson's disease; J44.0 Chronic obstructive pulmonary disease with (acute) lower respiratory infection; J18.9 Pneumonia, unspecified organism; J44.1 Chronic obstructive pulmonary disease with (acute) exacerbation; G47.33 Obstructive sleep apnea (adult) (pediatric); E78.00 Pure hypercholesterolemia, unspecified; E66.01 Morbid (severe) obesity due to excess calories; I25.2 Old myocardial infarction; K82.8 Other specified diseases of gallbladder; Z68.35 Body mass index [BMI] 35.0-35.9, adult; Z79.899 Other long term (current) drug therapy; Z87.891 Personal history of nicotine dependence; Z95.1 Presence of aortocoronary bypass graft; Z95.5 Presence of coronary angioplasty implant and graft
CPT/HCPCS: 99285; 74176; 96365; 76705; 71045 ×2; 96375; 84484; 80053 ×2; 83880; 83690; 85025 ×2; 85378; 87077; 87088; 87186; 81001; 36415 ×2; 93005; 96372 ×3; 78582; 93306; 93880; 97161; 70450; 97116 ×2; 82948 ×6; 93356; 96376; 83735; 97039; G0378 ×47; J3490 ×2; J0696; J1644 ×5; A9540; A9558